=== PATIENT | male | born 2000 | race Two or more races ===

== ENCOUNTER 2024-03-08 17:20 | Emergency (ER) | payer OTHER ==
[~2024-03-08] VITALS: Ht 177.8 cm; Wt 59.0 kg
[2024-03-08 18:38] LABS: BASOPHILS # (AUTO) 0.1 (0.0-0.1); BASOPHILS % 0.4 % (0.0-1.0); EOSINOPHILS % 0.3 % (0.0-6.0); HEMATOCRIT 46.9 % (38.2-49.6); HEMOGLOBIN 16.4 g/dL (14.0-18.0); LYMPHOCYTES # (AUTO) 1.3 (1.0-3.2); LYMPHOCYTES % 8.4 % (18.0-39.1); MEAN CORPUSCULAR HEMOGLOBIN 32.1 pg (28-32); MEAN CORPUSCULAR VOLUME 91.8 fL (81-99); MONOCYTES # (AUTO) 1.1 (0.2-0.8); MONOCYTES % 7.2 % (4.4-11.3); NEUTROPHILS % 83.1 % (38.7-80.0); PLATELET COUNT 247 x10e3/uL (140-360); RED BLOOD COUNT 5.11 x10e6/uL (4.3-5.7); RED CELL DISTRIBUTION WIDTH 11.9 % (11.7-14.4); WHITE BLOOD COUNT 15.67 x10e3/uL (4.8-10.8)
[2024-03-08 18:54] LABS: ALBUMIN 4.8 g/dL (3.5-5.0); ALBUMIN/GLOBULIN RATIO 1.5 (0.8-2.0); ANION GAP 14.7 mmol/L (8-16); BILIRUBIN,TOTAL 1.5 mg/dL (0.2-1.2); CALCIUM 10.9 mg/dL (8.4-10.2); CREATININE, SERUM 1.08 mg/dL (0.72-1.25); POTASSIUM 3.7 mmol/L (3.5-5.1); TOTAL PROTEIN 7.9 g/dL (6.5-8.1)
[2024-03-08] MEDS ORDERED: FENTANYL CITRATE/PF 100MCG/2 ML INJ ONE (19:09)
[2024-03-08] MEDS ORDERED: ETOMIDATE 40 MG/ 20ML VIAL IV ONE (19:09)
[2024-03-08] MEDS ORDERED: FENTANYL CITRATE/PF 100MCG/2 ML INJ IV ONE ×2 (19:30→21:00)
[2024-03-08] MEDS ORDERED: ETOMIDATE 2 MG/ML 10 ML INJ IV STA ×2 (19:30→23:39)
[2024-03-08] MEDS: ONDANSETRON HCL INJ 2MG/ML 2ML 2 MG/ML VIAL IV STA (19:58)
[2024-03-08 20:05] VITALS: PULSE 79; RESP 17; TEMP 98
[2024-03-08 20:58] VITALS: BP 126/81; TEMP 98.2
[2024-03-08] MEDS ORDERED: MIDAZOLAM HCL 2 MG/2 ML VIAL ONE (21:09)
[2024-03-08 21:20] VITALS: PULSE 110; RESP 21; O2SAT 100
[2024-03-08] MEDS: Morphine 4mg INJECTION 4 MG/ML INJ IV ONE (23:15)
[2024-03-08] MEDS ORDERED: MIDAZOLAM HCL 2 MG/2 ML VIAL IV STA (23:39)
== END 2024-03-08 23:30 | disposition other institution (70) ==
LOC: ER 17:55 → MERGE 17:55 → ER 23:30
DX: M24.411 Recurrent dislocation, right shoulder (principal); G40.909 Epilepsy, unspecified, not intractable, without status epilepticus; G80.9 Cerebral palsy, unspecified; M41.9 Scoliosis, unspecified
CPT/HCPCS: 23655; 36415; 70450; 73030; 80053; 85025; 94799; 99284; J2250; J2270; J2405; J3010